=== PATIENT | male | born 1950 | race Caucasian/White ===

== ENCOUNTER 2018-03-26 03:16 | Observation (INO) ==
[2018-03-26 04:03] LABS: Baso % (Auto) 0.4 % (0.0-2.0); Eos # (Auto) 0.1 th/mm3 (0.0-0.4); Eos % (Auto) 1.1 % (0.0-4.0); Hematocrit 37.8 % (39.0-51.0); Hemoglobin 12.7 gm/dL (13.0-17.0); Lymph # (Auto) 2.3 th/mm3 (1.0-4.8); Lymph % (Auto) 23.8 % (9.0-44.0); Mean Corpuscular HGB Conc 33.5 % (32.0-36.0); Mean Corpuscular Hemoglobin 28.2 pg (27.0-34.0); Mean Platelet Volume 8.7 fL (7.0-11.0); Mono # (Auto) 0.6 th/mm3 (0.0-0.9); Mono % (Auto) 5.8 % (0.0-8.0); Neut # (Auto) 6.7 th/mm3 (1.8-7.7); Neut % (Auto) 68.9 % (16.0-70.0); Platelet Count 252 th/mm3 (150-450); Red Cell Distribution Width 14.6 % (11.6-17.2); White Blood Count 9.8 th/mm3 (4.0-11.0)
--- NOTE | 2018-03-26 04:03 | XR ---
EXAM DATE: 03/26/2018 3:44 AM EDT AGE/SEX: 67 years / Male INDICATIONS: Shortness of breath. Possible seizure. CLINICAL DATA: This is the patient's initial encounter. Patient reports that signs and symptoms have been present for 1 day and indicates a pain score of 0/10. MEDICAL/SURGICAL HISTORY: None. None. COMPARISON: [facility] [place], 06/24[place]. . FINDINGS: A single AP view of the chest demonstrates the lungs to be symmetrically aerated without evidence of mass, infiltrate or effusion. The heart is mildly enlarged. Tortuosity of the descending thoracic aor ta.. Osseous structures are intact. CONCLUSION: The lungs are clear. Cardiomegaly. Electronically signed by: Mauri Hendricks MD 03/26/2018 4:02 AM EDT
--- NOTE | 2018-03-26 04:15 | ED ---
HPI General Chief complaint: Seizure Stated complaint: Poss Siezures Time Seen by Provider: 03/26/18 03:21 Source: EMS Mode of arrival: EMS History of Present Illness HPI narrative: 67-year-old male with history of TBI brought in by ambulance from his alf after having had what appeared to be a seizure. This occurred about an hour prior to arrival. The patient was witnessed to have generalized tonic-clonic shaking with foaming at the mouth that lasted for several minutes. He appeared to be postictal after this event. He is not on any antiepileptics. Upon arrival to the emergency department the patient is awake and oriented to person only. Apparently this is his baseline. He does not have any physical pain. He is a poor historian and does not provide any further history. Related Data Home Medications Medication Instructions Recorded Confirmed acetaminophen [Tylenol] 650 mg PO Q4H PRN 03/26/18 03/26/18 atorvastatin 20 mg PO DAILY 03/26/18 03/26/18 bisacodyl 10 mg [place] DAILY PRN 03/26/18 03/26/18 ferrous sulfate 325 mg PO BID 03/26/18 03/26/18 glipizide-metformin 2 tab PO BID 03/26/18 03/26/18 glucagon HCl 1 mg IM PRN 03/26/18 03/26/18 insulin aspart U-100 [Novolog 100 unit SUB-Q AC BREAKFAST 03/26/18 03/26/18 U-100 Insulin aspart] lisinopril 20 mg PO DAILY 03/26/18 03/26/18 loperamide 2 mg PO Q2-4H PRN 03/26/18 03/26/18 magnesium hydroxide [Milk of 30 ml PO DAILY PRN 03/26/18 03/26/18 Magnesia] ondansetron [Zofran ODT] 4 mg PO Q6-8H PRN 03/26/18 03/26/18 quetiapine [Seroquel] 25 mg PO BID 03/26/18 03/26/18 sennosides-docusate sodium 1 tab PO BID PRN 03/26/18 03/26/18 [Senna-S] Allergies Allergy/AdvReac Type Severity Reaction Status Date / Time No Known Allergies Allergy Unverified 03/26/18 03:32 Review of Systems ROS: all other systems reviewed are negative [facility] Medical History Medical History Chest pain (Acute) Coronary artery disease (Acute) Diabetes (Acute) Hypertension (Acute) Seizure (Acute) Social History Social History Substance History: No History of Abuse Smoking Status: Unknown if ever smoked How Often Do You Have a Drink Containing Alcohol: Never Exam Narrative Exam Narrative: GENERAL: Well-developed, well-nourished, awake, alert, oriented to person only SKIN: Focused skin assessment warm/dry. HEAD: Atraumatic. Normocephalic. EYES: Pupils equal and round. No scleral icterus. No injection or drainage. ENT: No nasal bleeding or discharge. Mucous membranes pink and moist. NECK: Trachea midline. No JVD. CARDIOVASCULAR: Regular rate and rhythm. No murmur appreciated. RESPIRATORY: No accessory muscle use. Clear to auscultation. Breath sounds equal bilaterally. GASTROINTESTINAL: Abdomen soft, non-tender, nondistended. MUSCULOSKELETAL: No obvious deformities. No clubbing. No cyanosis. No edema. NEUROLOGICAL: Awake and alert. No obvious cranial nerve deficits. Motor grossly within normal limits. Course Initial Documented Vital Signs Temperature 98.5 F 03/26/18 03:58 Pulse Rate 92 H 03/26/18 03:58 Respiratory Rate 19 03/26/18 03:58 Blood Pressure 185/95 H 03/26/18 03:58 Pulse Oximetry 96 03/26/18 03:58 Last Documented Vital Signs Temperature 98.5 F 03/26/18 03:58 Pulse Rate 86 03/26/18 04:54 Respiratory Rate 19 03/26/18 04:54 Blood Pressure 166/76 H 03/26/18 04:54 Pulse Oximetry 96 03/26/18 04:56 Medical Decision Making MDM Narrative Medical decision making narrative: Vital signs reviewed. Labs and imaging studies reviewed. CT head shows ventriculomegaly and right maxillary sinus disease, stable from 2015. Patient's mental status is significantly improved from the emergency department. He has no history of seizures and is not on any antibiotics. He will be admitted for further evaluation. Case discussed with hospitalist Dr. Chairez who will admit the patient to her service. Medical Screen Exam Complete: Yes Emergency Medical Condition: Yes Differential Diagnosis Differential Diagnosis: Seizure, intracranial abnormality, metabolic abnormality Lab Data Result diagrams: 03/26/18 03:55 03/26/18 03:55 Lab Results 03/26/18 03/26/18 Range/Units 03:55 03:55 WBC 9.8 (4.0-11.0) th/mm3 RBC 4.50 (4.50-5.90) mil/mm3 Hgb 12.7 L (13.0-17.0) gm/dL Hct 37.8 L (39.0-51.0) % MCV 84.0 (80.0-100.0) fL MCH 28.2 (27.0-34.0) pg MCHC 33.5 (32.0-36.0) % RDW 14.6 (11.6-17.2) % Plt Count 252 (150-450) th/mm3 MPV 8.7 (7.0-11.0) fL Neut % (Auto) 68.9 (16.0-70.0) % Lymph % (Auto) 23.8 (9.0-44.0) % Crenshaw % (Auto) 5.8 (0.0-8.0) % Eos % (Auto) 1.1 (0.0-4.0) % Baso % (Auto) 0.4 (0.0-2.0) % Neut # (Auto) 6.7 (1.8-7.7) th/mm3 Lymph # (Auto) 2.3 (1.0-4.8) th/mm3 Crenshaw # (Auto) 0.6 (0.0-0.9) th/mm3 Eos # (Auto) 0.1 (0.0-0.4) th/mm3 Baso # (Auto) 0.0 (0.0-0.2) th/mm3 WBC Differential . Differential Comment Auto diff final Sodium 142 (136-145) meq/L Potassium 3.5 (3.5-5.1) meq/L Chloride 105 (98-107) meq/L Carbon Dioxide 22.9 (21.0-32.0) meq/L Anion Gap 14 (5-15) meq/L BUN 13 (7-18) mg/dL Creatinine 1.02 (0.60-1.30) mg/dL Estimated GFR 73 L (>89) mL/min Random Glucose 221 H (74-106) mg/dL Calcium 8.6 (8.5-10.1) mg/dL Magnesium 1.3 L (1.5-2.5) mg/dL Total Bilirubin 0.3 (0.2-1.0) mg/dL AST 17 (15-37) U/L ALT 31 (12-78) U/L Alkaline Phosphatase 78 (45-117) U/L Total Protein 7.0 (6.4-8.2) g/dL Albumin 3.4 (3.4-5.0) g/dL Imaging Data Radiologist's impression: Head CT 03/26/18 03:24 CONCLUSION: 1. No acute findings in the brain. 2. Ventriculomegaly and right maxillary sinus disease, stable from prior exam in 2014. . Chest X-Ray 03/26/18 03:26 CONCLUSION: The lungs are clear. Cardiomegaly. ECG Data Attestation: I personally reviewed and interpreted this ECG as follows: (Sinus, rate 87, leftward axis, normal intervals, nonspecific T wave abnormality) Discharge Plan Discharge Disposition Patient Disposition: 30 Still Patient Discharge Condition Condition: Stable Discharge Details Diagnosis: Seizure Physicians Team ED Provider: Marvin Phan Primary Care Provider: Ramone Castillo V Rxs /Orders / Referrals /Forms Prescriptions: No Action quetiapine [Seroquel] 25 mg Tablet 25 mg PO BID RF: 0 acetaminophen [Tylenol] 325 mg Tablet 650 mg PO Q4H PRN (Reason: Loose Stool) RF: 0 atorvastatin 20 mg Tablet 20 mg PO DAILY RF: 0 lisinopril 20 mg Tablet 20 mg PO DAILY RF: 0 sennosides-docusate sodium [Senna-S] 8.6-50 mg Tablet 1 tab PO BID PRN (Reason: Abdominal Pain) RF: 0 loperamide 2 mg Tablet 2 mg PO Q2-4H PRN (Reason: Abdominal Discomfort) RF: 0 magnesium hydroxide [Milk of Magnesia] 400 mg/5 mL Suspension 30 ml PO DAILY PRN (Reason: constipation) RF: 0 insulin aspart U-100 [Novolog U-100 Insulin aspart] 100 unit/mL Solution 100 unit Sub-Q AC BREAKFAST RF: 0 bisacodyl 10 mg Suppository 10 mg [place] DAILY PRN (Reason: Loose Stool) RF: 0 ferrous sulfate 325 mg (65 mg iron) Tablet 325 mg PO BID RF: 0 ondansetron [Zofran ODT] 4 mg Tablet,Disintegrating 4 mg PO Q6-8H PRN (Reason: loose) RF: 0 glipizide-metformin 2.5-500 mg Tablet 2 tab PO BID RF: 0 glucagon HCl 1 mg Recon Soln 1 mg IM PRN RF: 0 Discharge Interventions Interventions: Vital Signs Last Done: 03/26/18 04:54 Status ED Status: With Doctor
[2018-03-26 04:20] LABS: Albumin 3.4 g/dL (3.4-5.0); Anion Gap 14 meq/L (5-15); Aspartate Aminotransferase 17 U/L (15-37); Blood Urea Nitrogen 13 mg/dL (7-18); Calcium 8.6 mg/dL (8.5-10.1); Carbon Dioxide 22.9 meq/L (21.0-32.0); Chloride 105 meq/L (98-107); Glomerular Filtration Rate 73 mL/min (>89); Glucose,Random 221 mg/dL (74-106); Magnesium 1.3 mg/dL (1.5-2.5); Potassium 3.5 meq/L (3.5-5.1); Sodium 142 meq/L (136-145)
[2018-03-26 04:21] LABS: Alanine Aminotransferase 31 U/L (12-78)
[2018-03-26 04:23] LABS: Alkaline Phosphatase 78 U/L (45-117)
--- NOTE | 2018-03-26 04:25 | CT ---
EXAM DATE: 03/26/2018 4:12 AM EDT AGE/SEX: 67 years / Male INDICATIONS: Seizure. CLINICAL DATA: This is the patient's initial encounter. Patient reports that signs and symptoms have been present for 1 day and indicates a pain score of 0/10. MEDICAL/SURGICAL HISTORY: . Traumatic brain injury. None. RADIATION DOSE: 56.37 CTDI (mGy) COMPARISON: [facility] – [place], [place] BRAIN W/O CONTRAST, 06/24/2015. . TECHNIQUE: CT of the head without contrast. Using automated exposure control and adjustment of the mA and/or kV according to patient size, radiation dose was kept as low as reasonably achievable to ob tain optimal diagnostic quality images. DICOM format image data is available electronically for revi ew and comparison. FINDINGS: Cerebrum: Ventriculomegaly is similar to prior examination in 2014. There is also prominence of the sulci and basal cisterns. There is good johnson-white matter differentiation. No evidence of acute blood products or extra-axial fluid. No evidence of mass effect. Posterior Fossa: Stable cerebellar atrophy. No evidence of mass effect. The fourth ventricle is midl ine. Extracranial: The visualized portion of the orbits is intact. Opacity in the inferior right maxillar y sinus similar to prior. Skull: The calvaria is intact. No evidence of skull fracture. CONCLUSION: 1. No acute findings in the brain. 2. Ventriculomegaly and right maxillary sinus disease, stable from prior exam in 2014. . Electronically signed by: Mauri Hendricks MD 03/26/2018 4:24 AM EDT
[2018-03-26] MEDS ORDERED: Dextrose 50% in Water 50 ML Vial IV.PUSH PRN (05:04)
[2018-03-26] MEDS ORDERED: Bisacodyl 10 MG Supp RECTAL PRN (05:05)
[2018-03-26] MEDS ORDERED: Acetaminophen 325 MG Tablet PO PRN (05:05)
--- NOTE | 2018-03-26 05:16 | P.HPIM ---
History of Present Illness Primary Care Physician: Ramone Castillo MD History of Present Illness: This is a 67-year-old male with a PMH of HTN, CAD, DM and h/o TBI who was sent to the ER from SNF for seizure-like activity. Pt poor historian due to h/o TBI , unable to provide much info, history obtained from chart. Per report, staff noticed pt having tonic-clonic activity for several minutes w/ post-ictal state. Now back to baseline. Pt able to tell me he does not have h/o seizure, tells he "I feel well". On arrival, BP 185/95, HR 92, O2 sat 96% on RA, Afebrile. CBC essentially unremarkable. Chemistry essentially unremarkable except for Mg 1.3. CT Head w/ no acute findings, ventriculomegaly stable from previous exam. CXR with no acute findings. Further seizure activity while in the ER. - Diagnosis (1) Seizure (2) TBI (traumatic brain injury) (3) DM (diabetes mellitus) Review of Systems PAST FAMILY HISTORY: Unknown All other systems reviewed negative except as stated in HPI, unobtainable due to mental condition, unobtainable due to mental status PMFSH - History History Provided By: Patient - Medical History Medical History: Medical History (Last Updated 03/26/18 @ 04:06 by Janny Madrid) Chest pain Coronary artery disease Diabetes Hypertension Seizure - Tobacco History Smoking Status: Unknown if ever smoked - Alcohol History How Often Do You Have a Drink Containing Alcohol: Never - Substance Use History Substance History: No History of Abuse - Immunization History Tetanus Immunization: Unsure Medications and Allergies Active Medications: Active Medications Acetaminophen (Tylenol) 650 mg PO Q4H PRN PRN Reason: Temp > 100.4 Atorvastatin Calcium (Lipitor) 20 mg PO DAILY [facility] Dextrose (D50w Vial) 50 ml IV.PUSH UNSCH PRN PRN Reason: PER HYPOGLYCEMIA PROTOCOL Glucagon (Glucagon Inj) 1 mg OTHER PRN PRN PRN Reason: for Hypoglycemia Protocol Insulin Aspart (Novolog Insulin Correctional Sugar Inj) 0 unit SQ ACHS VALENTÍN; Protocol Lisinopril (Prinivil) 20 mg PO DAILY [facility] Quetiapine Fumarate (Seroquel) 25 mg PO BID [facility]N Senna/Docusate Sodium (Miroslava-Colace) 1 tab PO BID VALENT[facility]N Sennosides (Senokot) 17.2 mg PO Q12H PRN PRN Reason: Moderate Constipation Sodium Chloride (Ns Flush) 2 ml IV.FLUSH PRN PRN PRN Reason: FLUSH AFTER USING IV ACCESS Allergies Allergy/AdvReac Type Severity Reaction Status Date / Time No Known Allergies Allergy Unverified 03/26/18 03:32 Home Medications Medication Instructions Recorded Confirmed Type acetaminophen [Tylenol] 650 mg PO Q4H PRN 03/26/18 03/26/18 History atorvastatin 20 mg PO DAILY 03/26/18 03/26/18 History bisacodyl 10 mg [place] DAILY PRN 03/26/18 03/26/18 History ferrous sulfate 325 mg PO BID 03/26/18 03/26/18 History glipizide-metformin 2 tab PO BID 03/26/18 03/26/18 History glucagon HCl 1 mg IM PRN 03/26/18 03/26/18 History insulin aspart U-100 [Novolog 100 unit SUB-Q AC BREAKFAST 03/26/18 03/26/18 History U-100 Insulin aspart] lisinopril 20 mg PO DAILY 03/26/18 03/26/18 History loperamide 2 mg PO Q2-4H PRN 03/26/18 03/26/18 History magnesium hydroxide [Milk of 30 ml PO DAILY PRN 03/26/18 03/26/18 History Magnesia] ondansetron [Zofran ODT] 4 mg PO Q6-8H PRN 03/26/18 03/26/18 History quetiapine [Seroquel] 25 mg PO BID 03/26/18 03/26/18 History sennosides-docusate sodium 1 tab PO BID PRN 03/26/18 03/26/18 History [Senna-S] Exam Vital signs: Vital Signs 03/26/18 03:58 03/26/18 04:54 03/26/18 04:56 Temperature 98.5 F Pulse Rate 92 H 86 Respiratory Rate 19 19 Blood Pressure 185/95 H 166/76 H Pulse Oximetry 96 96 96 Intake & Output 03/25/18 03/25/18 03/26/18 06:59 18:59 06:59 Weight 79.379 kg Narrative: PE: GENERAL: Pleasant middle-aged white male in no acute distress, developmental delay, slow to speak, but answers simple questions. SKIN: Focused skin assessment warm and dry. HEENT: PERRLA, EOMI. No scleral icterus or conjunctival pallor. No lid lag or facial droop. CARDIOVASCULAR: Regular rate and rhythm. No obvious murmurs to auscultation. No chest tenderness to palpation. RESPIRATORY: No obvious rhonchi or wheezing. Clear to auscultation. Breath sounds equal bilaterally. GASTROINTESTINAL: Abdomen soft, non-tender, nondistended. BS normal. MUSCULOSKELETAL: Extremities without clubbing, cyanosis, or edema. No obvious deformities. NEUROLOGICAL: Awake, alert, TBI-mental status at baseline. No focal neurologic deficits. Moving both upper and lower extremities spontaneously. PSYCHIATRIC: Appropriate mood and affect. Insight and judgment normal. Results - Labs CBC & Chem 7: 03/26/18 03:55 03/26/18 03:55 Labs: Short CBC 03/26/18 Range/Units 03:55 WBC 9.8 (4.0-11.0) th/mm3 Hgb 12.7 L (13.0-17.0) gm/dL Hct 37.8 L (39.0-51.0) % Plt Count 252 (150-450) th/mm3 BMP 03/26/18 03:55 Sodium 142 Potassium 3.5 Chloride 105 Carbon Dioxide 22.9 BUN 13 Creatinine 1.02 Calcium 8.6 Liver Function 03/26/18 Range/Units 03:55 Total Bilirubin 0.3 (0.2-1.0) mg/dL AST 17 (15-37) U/L ALT 31 (12-78) U/L Alkaline Phosphatase 78 (45-117) U/L Albumin 3.4 (3.4-5.0) g/dL - Imaging Impressions Head CT 03/26/18 03:24 CONCLUSION: 1. No acute findings in the brain. 2. Ventriculomegaly and right maxillary sinus disease, stable from prior exam in 2015. . Chest X-Ray 03/26/18 03:26 CONCLUSION: The lungs are clear. Cardiomegaly. Caprini VTE Risk Assessment Caprini VTE Risk Assessment: No/Low Risk (score <= 1) Caprini Risk Assessment Model: Point Value = 1 Point Value = 2 Point Value = 3 Point Value = 5 Age 41-60 Minor surgery BMI > 25 kg/m2 Swollen legs Varicose veins or History of unexplained or recurrent spontaneous Oral contraceptives or hormone replacement Sepsis (< 1 month) Serious lung disease, including pneumonia (< 1 month) Abnormal pulmonary function Acute myocardial infarction Congestive heart failure (< 1 month) History of inflammatory bowel disease Medical patient at bed rest Age 61-74 Arthroscopic surgery Major open surgery (> 45 min) Laparoscopic surgery (> 45 min) Malignancy Confined to bed (> 72 hours) Immobilizing plaster cast Central venous access Age >= 75 History of VTE Family history of VTE Factor V Leiden Prothrombin [id number] Lupus anticoagulant Anticardiolipin antibodies Elevated serum homocysteine Heparin-induced thrombocytopenia Other congenital or acquired thrombophilia Stroke (< 1 month) Elective arthroplasty Hip, pelvis, or leg fracture Acute spinal cord injury (< 1 month) Prophylaxis Regimen: Total Risk Factor Score Risk Level Prophylaxis Regimen 0-1 Low Early ambulation 2 Moderate Order ONE of the following: *Sequential Compression Device (SCD) *Heparin 5000 units SQ BID 3-4 Higher Order ONE of the following medications: *Heparin 5000 units SQ TID *Enoxaparin/Lovenox 40 mg SQ daily (WT < 150 kg, CrCl > 30 mL/min) *Enoxaparin/Lovenox 30 mg SQ daily (WT < 150 kg, CrCl > 10-29 mL/min) *Enoxaparin/Lovenox 30 mg SQ BID (WT < 150 kg, CrCl > 30 mL/min) AND/OR *Sequential Compression Device (SCD) 5 or more Highest Order ONE of the following medications: *Heparin 5000 units SQ TID (Preferred with Epidurals) *Enoxaparin/Lovenox 40 mg SQ daily (WT < 150 kg, CrCl > 30 mL/min) *Enoxaparin/Lovenox 30 mg SQ daily (WT < 150 kg, CrCl > 10-29 mL/min) *Enoxaparin/Lovenox 30 mg SQ BID (WT < 150 kg, CrCl > 30 mL/min) AND *Sequential Compression Device (SCD) Assessment and Plan - Assessment (1) Seizure Code(s): R56.9 - Unspecified convulsions Status: Acute (2) TBI (traumatic brain injury) Code(s): S06.9X9A - Unspecified intracranial injury with loss of consciousness of unspecified duration, initial encounter Status: Acute (3) DM (diabetes mellitus) Code(s): E11.9 - Type 2 diabetes mellitus without complications Status: Acute - Plan A/P: 1. Seizure: sent to ER from SNF for seizure-like activity x1, new onset, no recurrent seizure while in ER. H/o TBI. CT Head w/ no acute findings. Will admit for further evaluation. Check MRI Brain to eval for possible mass/ seizure focus, check EEG to eval for seizure activity, Seizure Precautions. Check U/a for possible UTI. IVF for hydration. Neuro Checks. 2. TBI: H/o TBI, mental status appear to be at baseline at this time. Will monitor, resume home medications. 3. DM: Sliding scale w/ Accu-Cheks, hold Glipizide/Metformin for now. 4. DVT Prophylaxis: SCD/Teds 5. Social work for d/c planning as needed 6. Case discussed w/ ER physician at length, labs/records/imaging reviewed by me.
[2018-03-26] MEDS ORDERED: Mag Sulf 1 gm/100 ml Premix 100 ML IV.SIG ONE (05:30)
[2018-03-26] MEDS: Sod Chloride 0.9% Inj 1,000 ML IV.CONT SCH ×2 (05:56→18:39)
--- NOTE | 2018-03-26 08:28 | MR ---
EXAM DATE: 03/26/2018 8:21 AM EDT AGE/SEX: 67 years / Male INDICATIONS: Seizures. CLINICAL DATA: This is the patient's initial encounter. Patient reports that signs and symptoms have been present for 1 day and indicates a pain score of 0/10. MEDICAL/SURGICAL HISTORY: Diabetes mellitus type II. Cerebrovascular disease. Total knee repla cement, left. COMPARISON: [facility] – [place], [place], CT HEAD W/O CONTRAST, 03/26/2018. [facility] – [place], [place], CT BRAIN W/O CONTRAST, 06/24/2015. . TECHNIQUE: Multiplanar, multisequence examination of the brain was performed without contrast. FINDINGS: Cerebrum: There is diffuse significant white matter atrophy and dilation of the ventricles as well a s the third ventricle. No evidence of sulcal effacement. No evidence of mass, intra-axial or extra-ax ial fluid collection. No evidence of hemorrhage. White Matter: Diffuse white matter atrophy with mild periventricular white matter hyperintensity. Posterior Fossa: The cerebellum and brainstem are intact. The 4th ventricle is midline. The cerebel lopontine angle is unremarkable. The cerebellar tonsils are normal in position. Diffusion Imaging: No focal areas of restricted diffusion are seen. No evidence of acute infarction . Extracranial: The visualized portions of the orbits and paranasal sinuses are unremarkable. CONCLUSION: 1. There is extensive white matter atrophy, greater than expected for the patient's age. However, th e ventricles and both lateral and third ventricle appear dilated out of proportion to the amount of w dieudonne matter atrophy. No evidence of sulcal effacement. Recommend evaluation for normal pressure hydro cephalus. Electronically signed by: Veronique Juarez MD 03/26/2018 8:26 AM EDT
[2018-03-26] MEDS ORDERED: QUEtiapine 25 MG Tablet PO SCH (09:00)
[2018-03-26] MEDS: Insulin NovoLOG Aspart Correctional Sugar Inj SQ SCH ×4 (09:47→20:15)
[2018-03-26] MEDS: Senna/Docusate Sodium 8.6/50 MG Tablet PO SCH ×2 (09:48→20:15)
[2018-03-26] MEDS: Lisinopril 20 MG Tablet PO SCH (09:48)
--- NOTE | 2018-03-26 12:56 | ECG ---
Date Performed: 03/26/2018 Time Performed: 04:48:41 PTAGE: 67 years EKG: Sinus rhythm BORDERLINE LEFT AXIS DEVIATION NONSPECIFIC T-WAVE ABNORMALITY BORDERLINE ECG PREVIOUS TRACING : 06/24/2015 10.51 Since the previous tracing, no significant change noted DOCTOR: Arias Greenberg Interpretating Date/Time 03/26/2018 12:55:43
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
[2018-03-26 16:25] LABS: Bilirubin,Urine Negative (Negative); Clarity,Urine Hazy (Clear); Color,Urine Yellow (Yellw/Straw); Glucose,Urine (UA) Negative (Negative); Hyaline Casts,Urine 1 /lpf (0-3); Leukocyte Esterase,Urine Negative (Negative); Mucus,Urine Few /lpf (Occasional); Nitrite,Urine Negative (Negative); Specific Gravity,Urine 1.014 (1.002-1.035)
--- NOTE | 2018-03-26 16:57 | MB ---
cc: Bettina Isaac MD DATE: 03/26/2018 REASON FOR CONSULTATION: Seizure. HISTORY OF PRESENT ILLNESS: This is a 67-year-old man with a history of traumatic brain injury, hypertension, heart disease, diabetes, came in from his SNF for seizure-like activity. No history can be given. The patient lays in bed, eyes closed, does not answer any questions, but can follow commands. Apparently, there was some generalized tonic-clonic event at the detention or SNF with some postictal, back to baseline I am told per report. There is no mention of a history of seizures. SOCIAL HISTORY: Really unknown. MEDICINES: In a facility: 1. Lisinopril. 2. Seroquel. 3. Senna. PHYSICAL EXAMINATION: VITAL SIGNS: Temperature is 97.1, pulse 62, respiratory rate 18, blood pressure 129/63. NECK: Supple. HEART: Regular. NEUROLOGIC: He is sleepy, arousable, does not open his eyes, but nods yes and no to questioning. Follows commands, moves his arms, lifts his legs up. No lateralizing weakness. Does not follow cerebellar or gait. Will not speak. Speech cannot be assessed. LABORATORY DATA: Reviewed. Hemoglobin 12.7. Chemistries: Glucose 183, GFR 73, magnesium 1.3. Reports as far as imaging of the brain, there is a lot of extensive white matter disease, increased ventricular size, certainly can be a picture of NPH, but may be due to his TBI as well. Gait cannot be assessed to determine if he has any gait consistent with NPH nor we test his memory. IMPRESSION: New onset seizure. EEG will be done. He was loaded with Keppra. I will continue 500 every 12. I will also go ahead and get a UA just to make sure that he does not have a urinary tract infection. I am not sure what medicines he is on at his facility and should be checked to see if there is any medication that can induce seizures such as Wellbutrin and/or tramadol. If that is the case, then that medicine needs to be discontinued. Maintain seizure precautions. Certainly, if his EEG is unremarkable, he can be discharged on 500 b.i.d. of Keppra with outpatient followup. Also, have Physical Therapy get him out of bed and assess him. MD Jaswinder Chavira , 01:26 PM , 01:32 PM
--- NOTE | 2018-03-26 17:17 | MG ---
cc: Bettina Isaac MD EEG NUMBER: [id number] REFERRING PHYSICIAN: Gaston Parsons MD INDICATIONS: In room G78. Awake, drowsy, asleep with photic done. Lethargic. CT shows ventriculomegaly with history of a seizure yesterday at his rehabilitation at his correction type facility. History of traumatic brain injury. On magnesium, Zofran, Prinivil, Lipitor. I believe he was given Keppra as well. DESCRIPTION OF RECORD: Quite a bit of artifact in the recording from the beginning portion. The patient is moving, but overall background predominantly is of 5-6 Hz. Somewhat disorganized looking study. No appreciable epileptic activity. Hyperventilation could not be done. Photic stimulation, there is a mild driving response. IMPRESSION: Abnormal electroencephalogram due to mild slowing of the background, may be consistent with encephalopathy. No obvious epileptiform features. Clinical correlation. MD TANO Chavira/natalee , 04:35 PM , 04:39 PM
[2018-03-26] MEDS ORDERED: Lisinopril 20 MG Tablet PO ONE (19:57)
[2018-03-26] MEDS: levETIRAcetam 500 MG Tablet PO SCH (20:16)
[2018-03-27] MEDS: Sod Chloride 0.9% Inj 1,000 ML IV.CONT SCH (04:34)
[2018-03-27 05:28] LABS: Baso % (Auto) 0.2 % (0.0-2.0); Eos # (Auto) 0.1 th/mm3 (0.0-0.4); Eos % (Auto) 0.7 % (0.0-4.0); Hematocrit 33.2 % (39.0-51.0); Hemoglobin 11.3 gm/dL (13.0-17.0); Lymph # (Auto) 1.9 th/mm3 (1.0-4.8); Lymph % (Auto) 23.7 % (9.0-44.0); Mean Corpuscular HGB Conc 33.9 % (32.0-36.0); Mean Corpuscular Hemoglobin 28.4 pg (27.0-34.0); Mean Corpuscular Volume 83.8 fL (80.0-100.0); Mean Platelet Volume 8.5 fL (7.0-11.0); Mono # (Auto) 0.5 th/mm3 (0.0-0.9); Mono % (Auto) 5.7 % (0.0-8.0); Neut # (Auto) 5.6 th/mm3 (1.8-7.7); Neut % (Auto) 69.7 % (16.0-70.0); Platelet Count 206 th/mm3 (150-450); Red Blood Count 3.97 mil/mm3 (4.50-5.90); Red Cell Distribution Width 14.6 % (11.6-17.2); White Blood Count 8.1 th/mm3 (4.0-11.0)
[2018-03-27 05:58] LABS: Albumin 2.9 g/dL (3.4-5.0); Anion Gap 8 meq/L (5-15); Aspartate Aminotransferase 16 U/L (15-37); Blood Urea Nitrogen 10 mg/dL (7-18); Calcium 8.2 mg/dL (8.5-10.1); Carbon Dioxide 27.5 meq/L (21.0-32.0); Chloride 111 meq/L (98-107); Glomerular Filtration Rate Greater Than 89 mL/min (>89); Glucose,Random 142 mg/dL (74-106); Magnesium 1.6 mg/dL (1.5-2.5); Potassium 3.3 meq/L (3.5-5.1); Sodium 146 meq/L (136-145)
[2018-03-27 06:02] LABS: Alanine Aminotransferase 26 U/L (12-78); Alkaline Phosphatase 66 U/L (45-117); Total Protein 6.2 g/dL (6.4-8.2)
[2018-03-27] MEDS: Insulin NovoLOG Aspart Correctional Sugar Inj SQ SCH ×4 (09:14→21:39)
[2018-03-27] MEDS: Senna/Docusate Sodium 8.6/50 MG Tablet PO SCH ×2 (09:14→21:39)
[2018-03-27] MEDS: levETIRAcetam 500 MG Tablet PO SCH ×2 (09:14→21:39)
[2018-03-27] MEDS: Lisinopril 20 MG Tablet PO SCH ×2 (09:14→21:39)
--- NOTE | 2018-03-27 15:44 | P.PNIM ---
Subjective Interval history: Follow-up new onset seizure and lethargy. Patient in a sitting position in the bed, denies any pain or shortness of breath family/mother at bedside, PT in room for evaluation and treatment. Patient awake alert and oriented to self and birthdate, patient denies any pain or shortness of breath denies any headache or dizziness. Patient and family stated eating well, denies any nausea or vomiting. Physical Exam Vital signs: Vital Signs 03/26/18 16:00 03/26/18 19:45 03/27/18 00:00 Temperature 98.7 F 98.0 F 98.3 F Pulse Rate 78 75 73 Respiratory Rate 18 19 21 Blood Pressure 158/77 H 186/84 H 199/87 H Pulse Oximetry 93 L 96 97 03/27/18 02:05 03/27/18 03:55 03/27/18 08:06 Temperature 97.8 F 97.4 F L Pulse Rate 63 65 56 L Respiratory Rate 18 16 Blood Pressure 155/71 H 142/70 H Pulse Oximetry 95 95 03/27/18 11:02 Temperature 97.5 F L Pulse Rate 67 Respiratory Rate 18 Blood Pressure 188/89 H Pulse Oximetry 96 Intake & Output 03/26/18 03/27/18 03/27/18 18:59 06:59 18:59 Intake Total 1305 / 1305 1000 / 1000 400 / 400 Balance 1305 / 1305 1000 / 1000 400 / 400 Intake: IV 1305 / 1305 1000 / 1000 400 / 400 NS Inj 1,000 ML @ 100 mls/hr IV 1100 / 1100 1000 / 1000 400 / 400 .CONT .Q10H VALENTÍN Rx#:[id number] Magnesium Sulfate 1 gm/D5W 100 100 / 100 ml Premix 100 ML @ 100 mls/hr IV.SIG ONCE ONE Rx#:[id number] Keppra Inj 500 MG In NS Inj 100 105 / 105 ML @ 400 mls/hr IV.SIG ONCE ONE Rx#:[id number] Other: Date of Last Bowel Movement 03/26/18 03/26/18 03/26/18 Narrative: GENERAL: awake and alert x2, identifies his name & date of , with no acute distress, follows command SKIN: Warm and dry. HEAD: Atraumatic. Normocephalic. EYES: Pupils equal and round. No scleral icterus. No injection or drainage. weare eye glassess ENT: No nasal bleeding or discharge. Mucous membranes pink and moist. NECK: Trachea midline. No JVD. CARDIOVASCULAR: Regular rate and rhythm. RESPIRATORY: No accessory muscle use. Clear to auscultation. Breath sounds equal bilaterally. GASTROINTESTINAL: Abdomen soft, non-tender, nondistended. Hepatic and splenic margins not palpable. MUSCULOSKELETAL: Extremities without clubbing, cyanosis, or edema. No obvious deformities. NEUROLOGICAL: No obvious cranial nerve deficits. normal tone, moving all extremities, garbled speech. PSYCHIATRIC: flat mood and affect; cooperative, insight and judgement unreliable Results - Labs CBC & Chem 7: 03/27/18 04:05 03/27/18 04:05 Laboratory Results - last 24 hr 03/26/18 03/26/18 03/26/18 15:25 18:36 20:08 WBC RBC Hgb Hct MCV MCH MCHC RDW Plt Count MPV Neut % (Auto) Lymph % (Auto) [place] % (Auto) Eos % (Auto) Baso % (Auto) Neut # (Auto) Lymph # (Auto) [place] # (Auto) Eos # (Auto) Baso # (Auto) WBC Differential Differential Comment Sodium Potassium Chloride Carbon Dioxide Anion Gap BUN Creatinine Estimated GFR POC Glucose 176 H 174 H Random Glucose Calcium Magnesium Total Bilirubin AST ALT Alkaline Phosphatase Total Protein Albumin Urine Color Yellow Urine Clarity Hazy H Urine pH 5.0 Ur Specific [place] 1.014 Urine Protein Negative Urine Glucose (UA) Negative Urine Ketones Negative Urine Occult Blood Negative Urine Nitrate Negative Urine Bilirubin Negative Urine Urobilinogen Less than 2 Ur Leukocyte Esterase Negative Urine RBC 1 Urine WBC 2 Hyaline Casts 1 Urine Mucus Few H Micro UA Comment Culture not ind Ur Microscopic Review Not Reportable Urine Culture Comments Culture not ind 03/27/18 03/27/18 03/27/18 04:05 04:05 07:46 WBC 8.1 RBC 3.97 L Hgb 11.3 L Hct 33.2 L MCV 83.8 MCH 28.4 MCHC 33.9 RDW 14.6 Plt Count 206 MPV 8.5 Neut % (Auto) 69.7 Lymph % (Auto) 23.7 [place] % (Auto) 5.7 Eos % (Auto) 0.7 Baso % (Auto) 0.2 Neut # (Auto) 5.6 Lymph # (Auto) 1.9 [place] # (Auto) 0.5 Eos # (Auto) 0.1 Baso # (Auto) 0.0 WBC Differential . Differential Comment Auto diff final Sodium 146 H Potassium 3.3 L Chloride 111 H Carbon Dioxide 27.5 Anion Gap 8 BUN 10 Creatinine 0.72 Estimated GFR Greater than 89 POC Glucose 150 H Random Glucose 142 H Calcium 8.2 L Magnesium 1.6 Total Bilirubin 0.3 AST 16 ALT 26 Alkaline Phosphatase 66 Total Protein 6.2 L D Albumin 2.9 L Urine Color Urine Clarity Urine pH Ur Specific [place] Urine Protein Urine Glucose (UA) Urine Ketones Urine Occult Blood Urine Nitrate Urine Bilirubin Urine Urobilinogen Ur Leukocyte Esterase Urine RBC Urine WBC Hyaline Casts Urine Mucus Micro UA Comment Ur Microscopic Review Urine Culture Comments 03/27/18 13:25 WBC RBC Hgb Hct MCV MCH MCHC RDW Plt Count MPV Neut % (Auto) Lymph % (Auto) [place] % (Auto) Eos % (Auto) Baso % (Auto) Neut # (Auto) Lymph # (Auto) [place] # (Auto) Eos # (Auto) Baso # (Auto) WBC Differential Differential Comment Sodium Potassium Chloride Carbon Dioxide Anion Gap BUN Creatinine Estimated GFR POC Glucose 164 H Random Glucose Calcium Magnesium Total Bilirubin AST ALT Alkaline Phosphatase Total Protein Albumin Urine Color Urine Clarity Urine pH Ur Specific [place] Urine Protein Urine Glucose (UA) Urine Ketones Urine Occult Blood Urine Nitrate Urine Bilirubin Urine Urobilinogen Ur Leukocyte Esterase Urine RBC Urine WBC Hyaline Casts Urine Mucus Micro UA Comment Ur Microscopic Review Urine Culture Comments Assessment and Plan - Assessment (1) Seizure Code(s): R56.9 - Unspecified convulsions Status: Acute (2) TBI (traumatic brain injury) Code(s): S06.9X9A - Unspecified intracranial injury with loss of consciousness of unspecified duration, initial encounter Status: Acute (3) DM (diabetes mellitus) Code(s): E11.9 - Type 2 diabetes mellitus without complications Status: Acute - Plan Patient is a 67-year-old male with past medical history of hypertension, CAD, diabetes and history of total brain injury who was sent to the ER from nursing facility with seizure-like activity. Pt is unreliable historian due to h/o TBI , unable to provide much info, history obtained from chart. Per report, staff noticed pt having tonic-clonic activity for several minutes w/ post-ictal state. Now back to baseline. Pt able to tell me he does not have h/o seizure, tells he "I feel well". On arrival, BP 185/95, HR 92, O2 sat 96% on RA, Afebrile. CBC essentially unremarkable. Chemistry essentially unremarkable except for Mg 1.3. CT Head w/ no acute findings, ventriculomegaly stable from previous exam. CXR with no acute findings. No Further seizure activity while in the ER. Seizure: -CT Head w/ no acute findings, ventriculomegaly stable from previous exam -MRI Head: Conclusion: There is extensive white matter atrophy, greater than expected for the patient's age. However, the ventricles and both lateral and third ventricle appear dilated out of proportion to the amount of white matter atrophy. No evidence of sulcal effacement. Recommend evaluation for normal pressure hydrocephalus - EEG results, consistent with encephalopathy - Keppra IV given for one time loading dose, started on Keppra BID -Neurology following - pt more awake and responsive today MRI findings of NPH -difficult to asses if patient is symptomatic due to patient function/status -monitor, neurology consult -may need to follow up as an out patient with Neuro Surgeon History of TBI -Mental status appears to be at baseline at this time -Will monitor -Resume home medications Hypertension -consistently elevated, increase lisinopril -monitor BP DM -monitor Accu checks AC and HS with Insulin sliding scale -Hold glipizide and metformin for now Hypokalemia -replaced with KCL, monitor BMP Hypernatremia -slightly elevated, encourage increase fluid fluid intake since patient is more awake -monitor BMP DVT prophylaxis SCD director financial services consult for assisted placement Discharge Planning: This may discharge home today when assisted placement arranged
[2018-03-28 07:43] LABS: Anion Gap 9 meq/L (5-15); Blood Urea Nitrogen 11 mg/dL (7-18); Calcium 8.4 mg/dL (8.5-10.1); Carbon Dioxide 27.6 meq/L (21.0-32.0); Chloride 108 meq/L (98-107); Glomerular Filtration Rate Greater Than 89 mL/min (>89); Glucose,Random 170 mg/dL (74-106); Potassium 3.3 meq/L (3.5-5.1); Sodium 145 meq/L (136-145)
[2018-03-28] MEDS: levETIRAcetam 500 MG Tablet PO SCH (09:20)
[2018-03-28] MEDS: Lisinopril 20 MG Tablet PO SCH (09:20)
[2018-03-28] MEDS: Insulin NovoLOG Aspart Correctional Sugar Inj SQ SCH ×2 (09:21→13:45)
[2018-03-28] MEDS: Senna/Docusate Sodium 8.6/50 MG Tablet PO SCH (09:21)
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
--- NOTE | 2018-03-28 17:04 | P.PN ---
Subjective Interval history: Patient is seen lying in bed. His mother is present at bedside. Patient is a very poor historian; most information is given by his mother. Patient is sleeping but does wake with stimulation. Denies pain and promptly falls back asleep. Patient's mother is concerned about his changes in behavior or mentation. He does have a history of TBI however she tells me that over the past 6 months he has been frequently falling which is why she put him in a alf. She also reports that he seemed to develop more incontinence at night as well as occasional new to him confusion. She denies that he ever had a seizure prior to the episode leading to this hospitalization. Physical Exam Vital signs: Vital Signs 03/27/18 18:21 03/27/18 19:50 03/27/18 19:51 Temperature Pulse Rate 68 Respiratory Rate Blood Pressure Pulse Oximetry 99 98 03/27/18 20:00 03/27/18 23:42 03/28/18 00:58 Temperature 97.4 F L 97.3 F L Pulse Rate 66 65 Respiratory Rate 21 19 Blood Pressure 166/79 H 209/100 H 174/80 H Pulse Oximetry 95 96 03/28/18 04:00 03/28/18 07:54 03/28/18 08:00 Temperature 97.8 F 98.3 F Pulse Rate 59 L 54 L 53 L Respiratory Rate 20 12 Blood Pressure 184/89 H 190/84 H Pulse Oximetry 97 97 03/28/18 12:00 03/28/18 16:00 Temperature 98.4 F 98.6 F Pulse Rate 61 61 Respiratory Rate 16 16 Blood Pressure 159/75 H 172/79 H Pulse Oximetry 96 96 Intake & Output 03/27/18 03/28/18 03/28/18 18:59 06:59 18:59 Intake Total 400 / 400 240 / 240 Balance 400 / 400 240 / 240 Intake: IV 400 / 400 NS Inj 1,000 ML @ 100 mls/hr IV 400 / 400 .CONT .Q10H VALENTÍN Rx#:[id number] Oral 240 / 240 Other: # Urine Diapers 2 Date of Last Bowel Movement 03/26/18 03/26/18 Narrative: GENERAL: Sleepy, identifies his name & date of , with no acute distress, follows command SKIN: Warm and dry. HEAD: Atraumatic. Normocephalic. EYES: Pupils equal and round. No scleral icterus. No injection or drainage. weare eye glassess CARDIOVASCULAR: Regular rate and rhythm. RESPIRATORY: No accessory muscle use. Clear to auscultation. Breath sounds equal bilaterally. GASTROINTESTINAL: Abdomen soft, non-tender, nondistended. MUSCULOSKELETAL: Extremities without clubbing, cyanosis, or edema. No obvious deformities. NEUROLOGICAL: No obvious cranial nerve deficits. normal tone, moving all extremities, garbled speech. PSYCHIATRIC: flat mood and affect; cooperative, insight and judgement unreliable Results - Labs CBC & Chem 7: 03/27/18 04:05 03/28/18 05:00 Laboratory Results - last 24 hr 03/27/18 03/27/18 03/28/18 18:41 20:38 05:00 Sodium 145 Potassium 3.3 L Chloride 108 H Carbon Dioxide 27.6 Anion Gap 9 BUN 11 Creatinine 0.84 Estimated GFR Greater than 89 POC Glucose 181 H 221 H Random Glucose 170 H Calcium 8.4 L 03/28/18 03/28/18 07:22 13:36 Sodium Potassium Chloride Carbon Dioxide Anion Gap BUN Creatinine Estimated GFR POC Glucose 174 H 221 H Random Glucose Calcium Assessment and Plan - Assessment (1) Seizure Code(s): R56.9 - Unspecified convulsions Status: Acute (2) TBI (traumatic brain injury) Code(s): S06.9X9A - Unspecified intracranial injury with loss of consciousness of unspecified duration, initial encounter Status: Acute (3) DM (diabetes mellitus) Code(s): E11.9 - Type 2 diabetes mellitus without complications Status: Acute - Plan Patient is a 67-year-old male with past medical history of hypertension, CAD, diabetes and history of total brain injury who was sent to the ER from nursing facility with seizure-like activity. Pt is unreliable historian due to h/o TBI , unable to provide much info, history obtained from chart. Per report, staff noticed pt having tonic-clonic activity for several minutes w/ post-ictal state. Now back to baseline. Pt able to tell me he does not have h/o seizure, tells he "I feel well". On arrival, BP 185/95, HR 92, O2 sat 96% on RA, Afebrile. CBC essentially unremarkable. Chemistry essentially unremarkable except for Mg 1.3. CT Head w/ no acute findings, ventriculomegaly stable from previous exam. CXR with no acute findings. No Further seizure activity while in the ER. Seizure: -CT Head w/ no acute findings, ventriculomegaly stable from previous exam -MRI Head: Conclusion: There is extensive white matter atrophy, greater than expected for the patient's age. However, the ventricles and both lateral and third ventricle appear dilated out of proportion to the amount of white matter atrophy. No evidence of sulcal effacement. Recommend evaluation for normal pressure hydrocephalus - EEG results, consistent with encephalopathy - Keppra IV given for one time loading dose, started on Keppra BID -Neurology following; recommends Keppra 500 mg twice daily MRI findings of NPH -difficult to asses if patient is symptomatic due to patient function/status -Neurosurgery consulted due to mother's report of increasing falls and incontinence in addition to radiographic findings. MRI was reviewed by neurosurgery who feel that the NPH is a radiographic diagnosis and not a concern at this time. Also noted that if he did receive a shunt he would be at high risk for developing subdural hematomas. 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
== END 2018-03-28 16:45 ==
LOC: NEDA 03:16 → NEPC 03:16 → NEPGCP 06:00
PROVIDERS: ADMIT Hospitalist; ATTEND Hospitalist